=== PATIENT | male | born 1960 | race Caucasian/White ===

== ENCOUNTER → 2020-12-15 | Outpatient (CLI) | payer BC ==
[2020-12-15 19:20] LABS: Basophils # (A) 0.03 X 10*3/uL (0.00-0.10); Basophils % (A) 0.5 %; Eosinophils # (A) 0.19 X 10*3/uL (0.04-0.35); Eosinophils % (A) 2.9 %; HCT 43.9 % (39.6-50.0); HGB 15.2 g/dL (13.0-17.0); Lymphocytes # (A) 1.86 X 10*3/uL (0.90-5.00); Lymphocytes % (A) 28.2 %; MCH 31.9 pg (27.0-32.0); MCHC 34.6 g/dL (32.0-37.0); MCV 92.2 fL (80.0-97.0); Mean Platelet Volume 10.9 fL (9.5-12.2); Monocytes # (A) 0.51 X 10*3/uL (0.20-1.00); Monocytes % (A) 7.7 %; Neutrophils # (A) 3.98 X 10*3/uL (1.80-7.70); Neutrophils % (A) 60.2 %; Platelet Count 205 X 10*3/uL (140-440); RBC 4.76 X 10*6/uL (4.40-5.60); RDW 12.7 % (11.5-14.5)
[2020-12-15 19:47] LABS: African American GFR (CKD) 83.5 (60.0-200.0); Albumin 4.8 g/dL (3.80-4.90); Albumin/Globulin Ratio 2.4 (1.60-3.17); Anion Gap 5.7 mmol/L (4.00-12.00); BUN/Creat Ratio 13.64 Ratio (12.00-20.00); Calcium 9.2 mg/dL (8.7-10.3); Carbon Dioxide 30.3 mmol/L (21.6-31.8); Chol/HDL Ratio 4.53; Non-African American GFR(CKD) 72.1 (60.0-200.0); Potassium 4.9 mmol/L (3.5-5.5); Total Bilirubin 0.5 mg/dL (0.3-1.2); Total Protein 6.8 g/dL (6.2-8.2)
[2020-12-15 19:55] LABS: PSA Annual Screen 1.1 ng/mL (0.0-4.0); T4, Free (Free Thyroxine) 1.3 ng/dL (0.80-1.80)
== END | disposition home or self-care (01) ==
LOC: LABWHC1 10:30
PROVIDERS: ATTEND Family Medicine
DX: Z00.00 Encounter for general adult medical examination without abnormal findings (principal); E03.9 Hypothyroidism, unspecified; R07.89 Other chest pain
CPT/HCPCS: 84439; 80061; 80053; 83540; 84443; 85025; 82043; 82570; 36415; G0103